=== PATIENT | male | born 1980 | race Caucasian/White ===

== ENCOUNTER 2017-11-12 15:50 | Emergency (ER) | payer OTHER ==
[~2017-11-12] VITALS: Wt 86.8 kg
[~2017-11-12 15:50] MED LIST: CEPHALEXIN500 M1 PO; FLOVENT0.11 MG/AC
[2017-11-12 17:44] VITALS: BP 126/78
== END 2017-11-12 17:10 | disposition home or self-care (01) ==
LOC: ED 15:50
DX: S61.215A Laceration without foreign body of left ring finger without damage to nail, initial encounter (principal); W23.0XXA Caught, crushed, jammed, or pinched between moving objects, initial encounter; Y92.008 Other place in unspecified non-institutional (private) residence as the place of occurrence of the external cause
CPT/HCPCS: 15840; A4649

== ENCOUNTER → 2019-11-05 | Outpatient (CLI) | payer OTHER ==
[2019-11-05 10:55] LABS: POTASSIUM 4.3 mmol/L (3.5-5.1)
[2019-11-05 10:56] LABS: CALCIUM 9.6 mg/dL (8.3-10.5)
== END ==
LOC: LAB 10:24
PROVIDERS: Family Medicine
DX: Z00.00 Encounter for general adult medical examination without abnormal findings (principal)

== ENCOUNTER → 2021-12-21 | Outpatient (CLI) | payer OTHER ==
[2021-12-21 13:42] LABS: ALBUMIN 4.1 g/dL (3.5-5.0)
[2021-12-21 13:43] LABS: POTASSIUM 3.7 mmol/L (3.5-5.1); SODIUM 144 mmol/L (136-145)
[2021-12-21 13:44] LABS: CALCIUM 9.3 mg/dL (8.3-10.5)
[2021-12-21 13:45] LABS: GLUCOSE 102 mg/dL (75-110); TOTAL PROTEIN 6.7 g/dL (6.4-8.3)
[2021-12-21 13:46] LABS: CARBON DIOXIDE 30 mmol/L (22-29)
[2021-12-21 13:47] LABS: TOTAL BILIRUBIN 0.5 mg/dL (0.2-1.2)
[2021-12-21 13:50] LABS: AST-SGOT 20 U/L (5-34)
[2021-12-21 13:52] LABS: ALT/SGPT 35 U/L (0-55)
[2021-12-21 13:53] LABS: D-DIMER 0.67 mg/L FEU (0.15-0.50)
[2021-12-21 13:57] LABS: BASO # 0.01 K/mm3 (0.02-0.10); EOS # 0.08 K/mm3 (0.04-0.40); EOS % 1.9 % (0.0-4.0); HEMATOCRIT 45.5 % (42.0-52.0); HEMOGLOBIN 14.8 g/dL (13.5-18.0); LYMPH# 2.16 K/mm3 (1.50-4.00); MEAN CELL VOLUME 98 fl (78-100); MEAN CORPUSCULAR HEMOGLOBIN 32 pg (27-31); MEAN CORPUSCULAR HGB CONC 33 g/dL (33-37); MEAN PLATELET VOLUME 9.5 fl (7.4-10.4); MONO # 0.51 K/mm3 (0.20-0.80); NEU # 1.46 K/mm3 (1.40-6.50); PLATELET COUNT 247 K/mm3 (130-400); RED BLOOD COUNT 4.65 M/mm3 (4.20-5.60); RED CELL DISTRIBUTION WIDTH 11.5 % (11.5-14.5); WHITE BLOOD COUNT 4.2 K/mm3 (4.8-10.8)
[2021-12-21 14:04] LABS: TROPONIN-I < 0.030 ng/mL (<0.030)
== END ==
LOC: LAB 13:08
PROVIDERS: Nurse Practitioner Primary Care
DX: R07.9 Chest pain, unspecified (principal)